=== PATIENT | female | born 1980 | race Hispanic/Latino ===

== ENCOUNTER 2018-05-17 12:03 | Emergency (ER) | payer SELFPAY ==
--- NOTE | 2018-05-17 13:37 | RAD REPORT ---
EXAM DESCRIPTION: RAD - Chest Single View - 05/17/2018 1:22 pm CLINICAL HISTORY: PAIN Chest pain. COMPARISON: No comparisons FINDINGS: Portable technique limits examination quality. The lungs are grossly clear. The heart is normal in size. No displaced fractures. IMPRESSION: No acute intrathoracic process suspected.
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
[2018-05-17 14:03] LABS: Urine Blood NEGATIVE (NEG); Urine Glucose NEGATIVE (NEG); Urine Protein 1+ (NEG)
[2018-05-17 14:14] VITALS: BP 124/80; TEMP 98.9; O2SAT 100
== END 2018-05-17 14:10 | disposition home or self-care (01) ==
LOC: ER 12:03
DX: S00.90XA Unspecified superficial injury of unspecified part of head, initial encounter (principal); S20.222A Contusion of left back wall of thorax, initial encounter; Y00.XXXA Assault by blunt object, initial encounter; Y93.9 Activity, unspecified; Y92.009 Unspecified place in unspecified non-institutional (private) residence as the place of occurrence of the external cause; Z98.82 Breast implant status
CPT/HCPCS: 70450; 71045; 81003; 81025; 99283

== ENCOUNTER 2019-03-05 19:48 | Emergency (ER) | payer OTHER, SELFPAY ==
[2019-03-05] MEDS ORDERED: ACETAMINOPHEN 500 MG TAB ONE (20:22)
[2019-03-05 20:44] LABS: Urine Blood NEGATIVE (NEG); Urine Glucose NEGATIVE (NEG); Urine Protein NEGATIVE (NEG); Urine Specific Gravity 1.015 (1.005-1.030)
[2019-03-05 20:56] LABS: Urine Bacteria <20 /HPF (<20); Urine Culture Reflex Order NOT NEEDED; Urine RBC NONE SEEN /HPF (NONE SEEN)
[2019-03-05] MEDS ORDERED: OSELTAMIVIR 75 MG CAP ONE (21:20)
[2019-03-05] MEDS ORDERED: PEN G BENZ LA 1.2MU/2ML SYRINGE IM ONE (21:21)
--- NOTE | 2019-03-05 21:42 | ER ---
Nurse's Notes [facility] Name: Vanesa Santos Age: 38 yrs Sex: Female : 1980 Arrival Date: 03/05/2019 Time: 19:51 Bed 15 Private MD: Hudson Villagomez E Diagnosis: Influenza due to certain identified influenza viruses;Streptococcal pharyngitis Presentation: 03/05 20:00 Presenting complaint: Patient states: C/O body aches, congestion and fever that started wh today, sore throat that started yesterday. Pt states daughter was diagnosed with flu last week. Transition of care: patient was not received from another setting of care. Onset of symptoms was March 05, 2019. Risk Assessment: Do you want to hurt yourself or someone else? Patient reports no desire to harm self or others. Initial Sepsis Screen: Does the patient meet any 2 criteria? HR > 90 bpm. Does the patient have a suspected source of infection? Yes: Other: sore throat. Care prior to arrival: None. 20:00 Method Of Arrival: Ambulatory 20:00 Acuity: RHYS 3 POWDER SHOVELER: 20:14 Verified Historical: - Allergies: 20:14 No Known Allergies; - Home Meds: 20:14 None [Active]; - PMHx: 20:14 None; - Immunization history:: Adult Immunizations not up to date. - Social history:: Smoking status: Patient/guardian denies using tobacco. - Ebola Screening: : Patient negative for fever greater than or equal to 101.5 degrees Fahrenheit, and additional compatible Ebola Virus Disease symptoms Patient denies exposure to infectious person. Screenin:15 Abuse screen: Denies threats or abuse. Denies injuries from another. Nutritional screening: No deficits noted. Tuberculosis screening: No symptoms or risk factors identified. Fall Risk None identified. Assessment: 20:15 General: Appears in no apparent distress. Behavior is calm, cooperative, appropriate wh for age. Pain: Complains of pain in Sore throat. Neuro: Level of Consciousness is awake, alert, obeys commands, Oriented to person, place, time, situation, Appropriate for age. Cardiovascular: Heart tones S1 S2 Capillary refill < 3 seconds. Respiratory: Airway is patent Respiratory effort is even, unlabored, Respiratory pattern is regular, symmetrical, Breath sounds are clear bilaterally. GI: Abdomen is flat, non-distended. : No signs and/or symptoms were reported regarding the genitourinary system. EENT: No signs and/or symptoms were reported regarding the EENT system. Derm: Skin is intact, is healthy with good turgor, Skin is pink, warm \T\ dry. normal. Musculoskeletal: Circulation, motion, and sensation intact. 21:29 Reassessment: Patient appears in no apparent distress at this time. No changes from previously documented assessment. Patient and/or family updated on plan of care and expected duration. Pain level reassessed. Patient is alert, oriented x 3, equal unlabored respirations, skin warm/dry/pink. Patient states symptoms have improved. Vital Signs: 20:10 BP 115 / 62; Pulse 115; Resp 18; Temp 100.4; Pulse Ox 100% ; Weight 75.3 kg; Height 5 wh ft. 2 in. (157.48 cm); 21:29 BP 124 / 66; Pulse 110; Resp 18; Temp 99.4(O); Pulse Ox 100% ; wh 20:10 Body Mass Index 30.36 (75.30 kg, 157.48 cm) ED Course: 19:51 Patient arrived in ED. es 19:51 Hudson Villagomez MD is Private Physician. es 19:55 Robert Hartley FNP-C is [facility]. la1 19:55 Deshawn Garcia MD is Attending Physician. la1 20:01 Davis Beard is Primary Nurse. 20:13 Triage completed. wh 20:16 Arm band placed on right wrist. wh 20:16 Patient has correct armband on for positive identification. Bed in low position. Call light in reach. Side rails up X 1. Pulse ox on. NIBP on. 21:55 No provider procedures requiring assistance completed. Patient did not have IV access during this emergency room visit. Administered Medications: 20:21 Drug: Tylenol 1000 mg Route: PO; 21:29 Follow up: Response: No adverse reaction; Temperature is decreased 21:25 Drug: Bicillin L-A 1.2 million units Route: IM; Site: right gluteus; 21:55 Follow up: Response: No adverse reaction 21:25 Drug: Tamiflu 75 mg Route: PO; 21:47 Follow up: Response: No adverse reaction Outcome: 21:41 Discharge ordered by MD. kline 21:55 Discharged to home ambulatory, with family. 21:55 Condition: stable 21:55 Discharge instructions given to patient, family, Instructed on discharge instructions, follow up and referral plans. medication usage, POC Strep and Flu Demonstrated understanding of instructions, follow-up care, medications, POC Prescriptions given X 1. 21:56 Patient left the ED. Signatures: Shalini Galvan Lee, CLINICAL EDUCATION ASSISTANT-C CLINICAL EDUCATION ASSISTANT-Cla1 Davis Beard
--- NOTE | 2019-03-05 21:42 | EDPHYS ---
Physician Documentation [facility] Name: Vanesa Santos Age: 38 yrs Sex: Female : 1980 Arrival Date: 03/05/2019 Time: 19:51 Bed 15 Private MD: Hudson Villagomez E ED Physician Deshawn Garcia HPI: 03/05 20:16 This 38 yrs old Female presents to ER via Ambulatory with complaints of Fever, la1 Congestion, Sore Throat, Headache, Ear Pain, Runny Nose. 20:16 The patient reports fever, that was measured at 100.4 degrees Fahrenheit. Onset: The la1 symptoms/episode began/occurred yesterday. Modifying factors: The patient has had contact with sick. Associated signs and symptoms: Pertinent positives: chills, myalgias, sore throat, Pertinent negatives: abdominal pain, altered mental status, diarrhea, headache, hemoptysis, skin rash, vomiting. Severity of symptoms: At their worst the symptoms were mild. The patient has not recently seen a physician. MANAGER LOCAL: 20:14 Verified Historical: - Allergies: 20:14 No Known Allergies; - Home Meds: 20:14 None [Active]; - PMHx: 20:14 None; - Immunization history:: Adult Immunizations not up to date. - Social history:: Smoking status: Patient/guardian denies using tobacco. - Ebola Screening: : Patient negative for fever greater than or equal to 101.5 degrees Fahrenheit, and additional compatible Ebola Virus Disease symptoms Patient denies exposure to infectious person. ROS: 20:17 Eyes: Negative for injury, pain, redness, and discharge, ENT: Negative for injury, la1 pain, and discharge, Neck: Negative for injury, pain, and swelling, Cardiovascular: Negative for chest pain, palpitations, and edema, Respiratory: Negative for shortness of breath, cough, wheezing, and pleuritic chest pain. 20:17 Back: Negative for injury and pain, : Negative for injury, bleeding, discharge, and swelling, MS/Extremity: Negative for injury and deformity, Neuro: Negative for headache, weakness, numbness, tingling, and seizure. 20:17 Constitutional: Positive for body aches, chills, fever. 20:17 Abdomen/GI: Negative for abdominal pain, nausea, vomiting, and diarrhea, black/tarry stool, rectal pain, rectal bleeding, acute changes. Exam: 20:18 Constitutional: This is a well developed, well nourished patient who is awake, alert, la1 and in no acute distress. Head/Face: Normocephalic, atraumatic. Eyes: Pupils equal round and reactive to light, extra-ocular motions intact. Periorbital areas with no swelling, redness, or edema. ENT: Mucous membranes moist. Neck: Trachea midline, no thyromegaly or masses palpated, and no cervical lymphadenopathy. Supple, full range of motion without nuchal rigidity, or vertebral point tenderness. No Meningismus. Chest/axilla: Normal chest wall appearance and motion. Nontender with no deformity. No lesions are appreciated. Cardiovascular: Regular rate and rhythm with a normal S1 and S2. No gallops, murmurs, or rubs. Normal PMI, no JVD. No pulse deficits. Respiratory: Lungs have equal breath sounds bilaterally, clear to auscultation. No rales, rhonchi or wheezes noted. No increased work of breathing, no retractions or nasal flaring. 20:18 Back: No spinal tenderness. No costovertebral tenderness. Full range of motion. 20:18 Abdomen/GI: Inspection: gravid appearance, is noted. Vital Signs: 20:10 BP 115 / 62; Pulse 115; Resp 18; Temp 100.4; Pulse Ox 100% ; Weight 75.3 kg; Height 5 wh ft. 2 in. (157.48 cm); 21:29 BP 124 / 66; Pulse 110; Resp 18; Temp 99.4(O); Pulse Ox 100% ; wh 20:10 Body Mass Index 30.36 (75.30 kg, 157.48 cm) wh MDM: 19:55 Patient medically screened. la1 21:22 Data reviewed: vital signs, nurses notes, lab test result(s), and as a result, I will la1 discharge patient. Data interpreted: Pulse oximetry: on room air is 100 %. Counseling: I had a detailed discussion with the patient and/or guardian regarding: the historical points, exam findings, and any diagnostic results supporting the discharge/admit diagnosis, lab results, the need for outpatient follow up, a family practitioner, an OB/Gyne specialist, to return to the emergency department if symptoms worsen or persist or if there are any questions or concerns that arise at home. Response to treatment: the patient's symptoms have mildly improved after treatment, patient is well hydrated. and as a result, I will discharge patient. Special discussion: Based on the patient's history, exam, and Dx evaluation, there is no indication for emergent intervention or inpatient Tx. It is understood by the patient/guardian that if the Sx's persist or worsen they need to return immediately for re-evaluation. 03/05 20:01 Order name: Flu; Complete Time: 21:13 03/05 20:01 Order name: Strep; Complete Time: 20:59 03/05 20:14 Order name: Urine Microscopic Only; Complete Time: 20:59 la1 03/05 20:39 Order name: Urine Dipstick--Ancillary (enter results); Complete Time: 20:59 ar5 03/05 20:39 Order name: Urine --Ancillary (enter results); Complete Time: 20:59 ar 03/05 20:14 Order name: Urine Dipstick-Ancillary (obtain specimen); Complete Time: 20:20 la1 03/05 21:13 Order name: PO challenge; Complete Time: 21:26 la1 Administered Medications: 20:21 Drug: Tylenol 1000 mg Route: PO; 21:29 Follow up: Response: No adverse reaction; Temperature is decreased 21:25 Drug: Bicillin L-A 1.2 million units Route: IM; Site: right gluteus; 21:55 Follow up: Response: No adverse reaction 21:25 Drug: Tamiflu 75 mg Route: PO; 21:47 Follow up: Response: No adverse reaction Disposition: 03/06 06:00 Co-signature as Attending Physician, Deshawn Garcia MD I agree with the assessment and [facility] plan of care. Disposition: 03/05/19 21:41 Discharged to Home. Impression: Influenza due to certain identified influenza viruses, Streptococcal pharyngitis. - Condition is Stable. - Discharge Instructions: Fever, Adult, Strep Throat, Strep Throat, [id number], Influenza, Adult, [id number], Rehydration, Adult. - Prescriptions for Tamiflu 75 mg Oral Capsule - take 1 tablet by ORAL route every 12 hours for 5 days; 9 tablet. - Medication Reconciliation Form, Thank You Letter, Antibiotic Education, Prescription Opioid Use form. - Follow up: Private Physician; When: 2 - 3 days; Reason: Recheck today's complaints, Re-evaluation by your physician. Follow up: Emergency Department; When: As needed; Reason: Worsening of condition. - Problem is new. - Symptoms have improved. Signatures: Dispatcher [employer] EDMS Robert Hartley, CONSTRUCTION PROJECT MANAGER-C CONSTRUCTION PROJECT MANAGER-Cla1 Davis Beard Terrence, MD MD tw4 Corrections: (The following items were deleted from the chart) 03/05 21:56 21:41 03/05/2019 21:41 Discharged to Home. Impression: Influenza due to certain identified influenza viruses; Streptococcal pharyngitis. Condition is Stable. Discharge Instructions: Fever, Adult, Strep Throat, Strep Throat, Dorr-vm-Ovdu, Influenza, Adult, Vktn-qc-[id number], Rehydration, Adult. Prescriptions for Tamiflu 75 mg Oral Capsule - take 1 tablet by ORAL route every 12 hours for 5 days; 9 tablet. and Forms are Medication Reconciliation Form, Thank You Letter, Antibiotic Education, Prescription Opioid Use. Follow up: Private Physician; When: 2 - 3 days; Reason: Recheck today's complaints, Re-evaluation by your physician. Follow up: Emergency Department; When: As needed; Reason: Worsening of condition. Problem is new. Symptoms have improved. la1
[2019-03-05 22:00] VITALS: O2SAT 100
[2019-03-05 22:03] VITALS: BP 124/66; TEMP 99.4
== END 2019-03-05 21:56 | disposition home or self-care (01) ==
LOC: ER 19:48
DX: O26.891 Other specified pregnancy related conditions, first trimester (principal); Z3A.00 Weeks of gestation of pregnancy not specified
CPT/HCPCS: 81025; 87081; 87804 ×2; 96372; 99283; J0561; 81003; 81015

== ENCOUNTER 2020-07-02 22:54 | Emergency (ER) | payer OTHER ==
--- NOTE | 2020-07-03 02:30 | ER ---
Nurse's Notes [facility] Name: Vanesa Santos Age: 40 yrs Sex: Female : 1980 Arrival Date: 07/02/2020 Time: 22:57 Bed 28 Private MD: Diagnosis: Phalanx fracture, Right Foot, 5 th Toe Presentation: 07/02 23:30 Chief complaint: Patient states: she fell last night injuring right foot and pinky toe. bb Coronavirus screen: pt currently positive for Covid. Ebola Screen: No symptoms or risks identified at this time. Initial Sepsis Screen: Does the patient meet any 2 criteria? No. Patient's initial sepsis screen is negative. Does the patient have a suspected source of infection? No. Patient's initial sepsis screen is negative. Risk Assessment: Do you want to hurt yourself or someone else? Patient reports no desire to harm self or others. Onset of symptoms was July 01, 2020. 23:30 Method Of Arrival: Ambulatory 23:30 Acuity: RHYS 4 bb Triage Assessment: 23:33 General: Appears in no apparent distress. Behavior is calm, cooperative. Pain: bb Complains of pain in right foot Pain currently is 7 out of 10 on a pain scale. Neuro: Level of Consciousness is awake, alert, obeys commands, Oriented to person, place, time, situation. Cardiovascular: No deficits noted. Respiratory: Respiratory effort is even, unlabored, Respiratory pattern is regular. Derm: Skin is pink, warm \\T\\ dry. Musculoskeletal: Circulation, motion, and sensation intact. Swelling present in right foot Reports pain in right foot. 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 - Social history:: Smoking status: Patient denies any tobacco usage or history of. Screenin/26 00:11 Abuse screen: Denies threats or abuse. Nutritional screening: No deficits noted. bb Tuberculosis screening: No symptoms or risk factors identified. Fall Risk None identified. Assessment: 00:11 Reassessment: No changes from previously documented assessment. see triage assessment. bb 01:59 Reassessment: Patient is alert, oriented x 3, equal unlabored respirations, skin bb warm/dry/pink. pt awaiting dispo by Dr Garibay. 02:40 Reassessment: Patient is alert, oriented x 3, equal unlabored respirations, skin bb warm/dry/pink. Vital Signs: 07/02 23:30 BP 133 / 93; Pulse 85; Resp 16 S; Temp 98.8(O); Pulse Ox 99% on R/A; Weight 70.31 kg bb (R); Height 5 ft. 2 in. (157.48 cm) (R); Pain 7/10; 07/03 02:35 BP 107 / 65; Pulse 63; Resp 16 S; Temp 98.5(O); Pulse Ox 96% on R/A; bb 07/02 23:30 Body Mass Index 28.35 (70.31 kg, 157.48 cm) bb ED Course: 07/02 22:57 Patient arrived in ED. bp1 23:32 Triage completed. bb 23:33 Arm band placed on Patient placed in waiting room, Patient notified of wait time. X-ray bb ordered. 07/03 00:11 Patient has correct armband on for positive identification. Call light in reach. bb 00:32 Zacarias Garibay MD is Attending Physician. mh7 01:08 XRAY Foot RIGHT 3 View In Process Unspecified. EDMS 01:08 XRAY Ankle RIGHT 3 view In Process Unspecified. EDMS 02:07 Kavin tape "Kavin-Taping" done to fourth and fifth toe for protection of fifth toe. ds4 02:12 Ortho shoe applied to right foot. ds4 02:41 No provider procedures requiring assistance completed. Patient did not have IV access bb during this emergency room visit. Administered Medications: No medications were administered Outcome: 02:30 Discharge ordered by . 7 02:41 Discharged to home ambulatory. bb 02:41 Condition: stable 02:41 Discharge instructions given to patient, Instructed on discharge instructions, follow up and referral plans. Demonstrated understanding of instructions, follow-up care. 02:42 Patient left the ED. bb Signatures: Dispatcher [employer] EDMS Coby Au, RN RN bb Dhiraj Castañeda ds4 Meera Queen [facility] Zacarias Garibay MD MD [facility]
--- NOTE | 2020-07-03 02:30 | EDPHYS ---
Physician Documentation [facility] Name: Vanesa Santos Age: 40 yrs Sex: Female : 1980 Arrival Date: 07/02/2020 Time: 22:57 Bed 28 Private MD: ED Physician Zacarias Garibay HPI: 07/03 02:15 This 40 yrs old Female presents to ER via Ambulatory with complaints of Toe mh7 Injury. 02:15 The patient presents with an injury. mh7 02:15 The complaints affect the right foot, 5th toe. Context: The problem was sustained on a [facility] street or driveway, resulted from the patient falling, while walking, Mechanism of Injury: Unknown the patient can fully bear weight, the patient is able to ambulate, without difficulty. Onset: The symptoms/episode began/occurred 2 day(s) ago. Modifying factors: The symptoms are alleviated by nothing, the symptoms are aggravated by weight bearing, wearing shoes. Associated signs and symptoms: Pertinent positives: swelling, Pertinent negatives: calf tenderness, fever, nausea, numbness, rash, tingling, vomiting, warmth, weakness. Severity of symptoms: At their worst the symptoms were moderate, yesterday, in the emergency department the symptoms are unchanged. 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 - Social history:: Smoking status: Patient denies any tobacco usage or history of. ROS: 07/03 02:19 Constitutional: Negative for fever, chills, and weight loss, Eyes: Negative for injury, mh7 pain, redness, and discharge, ENT: Negative for injury, pain, and discharge, Neck: Negative for injury, pain, and swelling, Cardiovascular: Negative for chest pain, palpitations, and edema, Respiratory: Negative for shortness of breath, cough, wheezing, and pleuritic chest pain, Abdomen/GI: Negative for abdominal pain, nausea, vomiting, diarrhea, and constipation, Back: Negative for injury and pain, : Negative for injury, bleeding, discharge, and swelling, Skin: Negative for injury, rash, and discoloration, Neuro: Negative for headache, weakness, numbness, tingling, and seizure, Psych: Negative for depression, anxiety, suicide ideation, homicidal ideation, and hallucinations, Allergy/Immunology: Negative for hives, rash, and allergies, Endocrine: Negative for neck swelling, polydipsia, polyuria, polyphagia, and marked weight changes, Hematologic/Lymphatic: Negative for swollen nodes, abnormal bleeding, and unusual bruising. Exam: 02:19 Constitutional: This is a well developed, well nourished patient who is awake, alert, mh7 and in no acute distress. Head/Face: Normocephalic, atraumatic. 02:19 Neuro: Awake and alert, GCS 15, oriented to person, place, time, and situation. Cranial nerves II-XII grossly intact. Motor strength 5/5 in all extremities. Sensory grossly intact. Cerebellar exam normal. Normal gait. Psych: Awake, alert, with orientation to person, place and time. Behavior, mood, and affect are within normal limits. 02:19 Musculoskeletal/extremity: Extremities: noted in the right foot, 5th toe: contusion, ecchymosis, tenderness, ROM: intact in all extremities, Circulation is intact in all extremities. Pulses: are normal with no appreciated deficits, Perfusion: the patient is normally perfused throughout, Perfusion: the extremity is normally perfused throughout, Sensation intact. Compartment Syndrome exam of affected extremity: is normal. no numbness, no tingling, no sensation deficit, no palor, no weak pulses, Joints: All joints appear normal with full range of motion. Weight bearing: able to fully bear weight, Tendon exam: specific tendon testing normal through active and passive range of motion 02:19 Skin: injury, abrasion(s), very small abrasion noted, of the right foot and right ankle, contusion(s), that are superficial, of the right foot, 5th toe. Vital Signs: 07/02 23:30 BP 133 / 93; Pulse 85; Resp 16 S; Temp 98.8(O); Pulse Ox 99% on R/A; Weight 70.31 kg bb (R); Height 5 ft. 2 in. (157.48 cm) (R); Pain 7/10; 07/03 02:35 BP 107 / 65; Pulse 63; Resp 16 S; Temp 98.5(O); Pulse Ox 96% on R/A; bb 07/02 23:30 Body Mass Index 28.35 (70.31 kg, 157.48 cm) Procedures: 02:23 Performed Kavin tape right 4 th, 5 th toes. [facility] MDM: 02:23 Differential diagnosis: fracture, sprain, arthritis, contusion. Data reviewed: vital [facility] signs, nurses notes, radiologic studies, plain films. Data interpreted: Pulse oximetry: on room air is 99 %. Interpretation: normal. Counseling: I had a detailed discussion with the patient and/or guardian regarding: the historical points, exam findings, and any diagnostic results supporting the discharge/admit diagnosis, the presence of at least one elevated blood pressure reading (>120/80) during this emergency department visit, radiology results, the need for outpatient follow up, a administrative services coordinator, to return to the emergency department if symptoms worsen or persist or if there are any questions or concerns that arise at home. Response to treatment: the patient's symptoms have markedly improved after treatment. 02:30 Patient medically screened. [facility] 07/02 23:35 Order name: XRAY Foot RIGHT 3 View 07/02 23:35 Order name: XRAY Ankle RIGHT 3 view 07/03 02:23 Order name: Orthopedic shoe; Complete Time: 02:31 [facility] Administered Medications: No medications were administered Disposition: 07/03/20 02:30 Discharged to Home. Impression: Phalanx fracture, Right Foot, 5 th Toe. - Condition is Stable. - Discharge Instructions: Toe Fracture, Joby-aj-Ruxe. - Prescriptions for Tramadol 50 mg Oral Tablet - take 1 tablet by ORAL route every 8 hours as needed; 12 tablet. - Medication Reconciliation Form, Thank You Letter, Antibiotic Education, Prescription Opioid Use form. - Follow up: Private Physician; When: 1 - 2 days; Reason: Worsening of condition, Recheck today's complaints, Continuance of care, Re-evaluation by your physician. - Problem is new. - Symptoms have improved. Signatures: Dispatcher [employer] EDCoby Santos RN RN Zacarias Newman MD MD [facility] Corrections: (The following items were deleted from the chart) 02:42 02:30 07/03/2020 02:30 Discharged to Home. Impression: Phalanx fracture, Right Foot, 5 bb th Toe. Condition is Stable. Forms are Medication Reconciliation Form, Thank You Letter, Antibiotic Education, Prescription Opioid Use. Follow up: Private Physician; When: 1 - 2 days; Reason: Worsening of condition, Recheck today's complaints, Continuance of care, Re-evaluation by your physician. Problem is new. Symptoms have improved. mh7
[2020-07-03 02:50] VITALS: BP 107/65; TEMP 98.5; O2SAT 96
--- NOTE | 2020-07-03 08:35 | RAD REPORT ---
EXAM DESCRIPTION: RAD - Ankle Right 3 View - 07/03/2020 1:09 am CLINICAL HISTORY: PAIN COMPARISON: No comparisons FINDINGS: No bone or joint abnormality.
--- NOTE | 2020-07-03 08:41 | RAD REPORT ---
EXAM DESCRIPTION: RAD - Foot Right 3 View - 07/03/2020 1:08 am CLINICAL HISTORY: PAIN COMPARISON: No comparisons FINDINGS: No acute fracture or dislocation seen.
== END 2020-07-03 02:42 | disposition home or self-care (01) ==
LOC: ER 22:54
DX: S92.501A Displaced unspecified fracture of right lesser toe(s), initial encounter for closed fracture (principal); W18.30XA Fall on same level, unspecified, initial encounter; Y93.01 Activity, walking, marching and hiking; Y92.89 Other specified places as the place of occurrence of the external cause
CPT/HCPCS: 99283

== ENCOUNTER 2023-02-09 14:23 | Emergency (ER) | payer OTHER, SELFPAY ==
[2023-02-09 15:25] LABS: SARS-CoV-2 Antigen Rapid Res Negative (Negative)
[2023-02-09] MEDS ORDERED: ALBUTEROL 2.5 MG/3 ML NEB SOL ONE (15:54)
[2023-02-09] MEDS ORDERED: IPRATROPIUM BROM 0.5MG/2.5ML ONE (15:54)
--- NOTE | 2023-02-09 16:06 | EDPHYS ---
Physician Documentation [facility] Name: Vanesa Santos Age: 42 yrs Sex: Female : 1980 Arrival Date: 02/09/2023 Time: 14:23 Bed DIS8 Private MD: ED Physician Rick Price HPI: 02/09 14:42 This 42 yrs old Female presents to ER via Ambulatory with complaints of Fever, jh7 Body Aches. 14:42 The patient reports fever, that was measured at 102 degrees Fahrenheit. jh7 14:42 Onset: The symptoms/episode began/occurred 2 day(s) ago. Associated signs and symptoms: jh7 Pertinent positives: chills, cough, myalgias. Both daughters have similar symptoms.. Historical: - Allergies: 14:44 No Known Allergies; hb - Home Meds: 14:44 None [Active]; hb - PMHx: 14:44 None; hb - PSHx: 14:44 Rhinoplasty; Tummy Tuck; Breast Augmentation; Hemorrhoidectomy; hb - Immunization history:: Adult Immunizations up to date. - Social history:: Smoking status: Patient denies any tobacco usage or history of. ROS: 14:42 Eyes: Negative for injury, pain, redness, and discharge, ENT: Negative for injury, jh7 pain, and discharge, Neck: Negative for injury, pain, and swelling, Cardiovascular: Negative for chest pain, palpitations, and edema, Abdomen/GI: Negative for abdominal pain, nausea, vomiting, diarrhea, and constipation, Back: Negative for injury and pain, MS/Extremity: Negative for injury and deformity, Skin: Negative for injury, rash, and discoloration, Neuro: Negative for headache, weakness, numbness, tingling, and seizure, 14:42 Constitutional: Positive for body aches, chills, fever, 14:42 Respiratory: Positive for cough, Negative for shortness of breath, 14:42 All other systems are negative, Exam: 14:42 Constitutional: This is a well developed, well nourished patient who is awake, alert, jh7 and in no acute distress. Head/Face: Normocephalic, atraumatic. ENT: Nares patent. No nasal discharge, no septal abnormalities noted. Tympanic membranes are normal and external auditory canals are clear. Oropharynx with no redness, swelling, or masses, exudates, or evidence of obstruction, uvula midline. Mucous membranes moist. Cardiovascular: Regular rate and rhythm with a normal S1 and S2. No gallops, murmurs, or rubs. Normal PMI, no JVD. No pulse deficits. Respiratory: Lungs have equal breath sounds bilaterally, clear to auscultation and percussion. No rales, rhonchi or wheezes noted. No increased work of breathing, no retractions or nasal flaring. Abdomen/GI: Soft, non-tender, with normal bowel sounds. No distension or tympany. No guarding or rebound. No evidence of tenderness throughout. Skin: Warm, dry with normal turgor. Normal color with no rashes, no lesions, and no evidence of cellulitis. MS/ Extremity: Pulses equal, no cyanosis. Neurovascular intact. Full, normal range of motion. Neuro: Awake and alert, GCS 15, oriented to person, place, time, and situation. Motor strength 5/5 in all extremities. Sensory grossly intact. Normal gait. Vital Signs: 14:42 BP 117 / 80; Pulse 102; Resp 8; Temp 98.3(TE); Pulse Ox 96% on R/A; Weight 77 kg; hb Height 5 ft. 4 in. ; Pain 5/10; 14:42 Body Mass Index 29.14 (77.00 kg, 162.56 cm) hb 14:42 Pain Scale: Adult hb MDM: 14:28 Patient medically screened. [facility] 15:50 Differential diagnosis: viral Infection, URI, bronchitis. Data reviewed: vital signs, [facility] nurses notes. Counseling: I had a detailed discussion with the patient and/or guardian regarding the historical points, exam findings, and any diagnostic results supporting the discharge/admit diagnosis, to return to the emergency department if symptoms worsen or persist or if there are any questions or concerns that arise at home. Special discussion: I discussed with the patient/guardian that the patient's current presentation does not indicate dosing of antibiotics. They should follow-up with their primary care provider and return if the symptoms persist or progress. 02/09 14:39 Order name: SARS RAPID; Complete Time: 15:32 [facility] 02/09 14:39 Order name: Flu; Complete Time: 15:32 [facility] Administered Medications: 15:46 Drug: DuoNeb Nebulize (2.5 mg - 0.5 mg) 3 ml Nebulizer once Route: Nebulizer; iw Disposition Summary: 02/09/23 16:05 Discharge Ordered Notes: Location: Home [facility] Problem: new [facility] Symptoms: are unchanged [facility] Condition: Stable [facility] Diagnosis - Acute upper respiratory infection, unspecified [facility] Followup: [facility] - With: Private Physician - When: 2 - 3 days - Reason: Recheck today's complaints Discharge Instructions: - Discharge Summary Sheet [facility] - Upper Respiratory Infection, Adult [facility] - Viral Respiratory Infection [facility] Forms: - Work release form iw - Medication Reconciliation Form [facility] - Thank You Letter [facility] - Patient Portal Instructions [facility] - Leadership Thank You Letter [facility] Prescriptions: - albuterol sulfate 90 mcg/actuation Inhalation HFA Aerosol Inhaler - inhale 1 inhalation INHALATION route every 4-6 hours As needed; 1 Each; [facility] Refills: 0, Product Selection Permitted - Tessalon Perles 100 mg Oral Capsule - take 1 capsule ORAL route every 8 hours As needed; 15 capsule; Refills: 0, [facility] Product Selection Permitted Signatures: Dispatcher [employer] Deana Steele, VAUGHN MENDES Starr Delaney RN RN Cait Reyes, BATON TWIRLER BATON TWIRLER [facility] Corrections: (The following items were deleted from the chart) 15:13 14:42 The patient reports fever, that was measured at 102 degrees Fahrenheit, [place] [id number]
--- NOTE | 2023-02-09 16:06 | ER ---
Nurse's Notes [facility] Name: Vanesa Santos Age: 42 yrs Sex: Female : 1980 Arrival Date: 02/09/2023 Time: 14:23 Bed DIS8 Private MD: Diagnosis: Acute upper respiratory infection, unspecified Presentation: 02/09 14:42 Chief complaint: Fever, body aches, cough, pain with cough, and nausea x 2 days. hb Coronavirus screen: Client presents with at least one sign or symptom that may indicate coronavirus-19. Provider contacted for isolation considerations. Ebola Screen: No symptoms or risks identified at this time. Initial Sepsis Screen: Does the patient meet any 2 criteria? No. Patient's initial sepsis screen is negative. Does the patient have a suspected source of infection? No. Patient's initial sepsis screen is negative. Risk Assessment: Do you want to hurt yourself or someone else? Patient reports no desire to harm self or others. Onset of symptoms was February 06, 2023. 14:42 Method Of Arrival: Ambulatory hb 14:42 Acuity: RHYS 4 hb Historical: - Allergies: 14:44 No Known Allergies; hb - Home Meds: 14:44 None [Active]; hb - PMHx: 14:44 None; hb - PSHx: 14:44 Rhinoplasty; Tummy Tuck; Breast Augmentation; Hemorrhoidectomy; hb - Immunization history:: Adult Immunizations up to date. - Social history:: Smoking status: Patient denies any tobacco usage or history of. Vital Signs: 14:42 BP 117 / 80; Pulse 102; Resp 8; Temp 98.3(TE); Pulse Ox 96% on R/A; Weight 77 kg; hb Height 5 ft. 4 in. ; Pain 5/10; 14:42 Body Mass Index 29.14 (77.00 kg, 162.56 cm) hb 14:42 Pain Scale: Adult hb ED Course: 14:27 Patient arrived in ED. rg4 14:28 [facility]yes FNP [facility]. jh7 14:28 Rick Price MD is Attending Physician. jh7 14:44 Triage completed. hb 14:44 Arm band placed on. hb 15:03 Flu Sent. hb 15:03 SARS RAPID Sent. hb 15:46 Stan, Deana, RN is Primary Nurse. iw Administered Medications: 15:46 Drug: DuoNeb Nebulize (2.5 mg - 0.5 mg) 3 ml Nebulizer once Route: Nebulizer; iw Outcome: 16:05 Discharge ordered by MD. harris 16:28 Patient left the ED. iw Signatures: Deana Pierce RN RN iw Baxter, Heather, RN RN hb Garcia, Rubi 4 Cait Reyes FNP [employer] [facility]
[2023-02-09 16:38] VITALS: BP 117/80; TEMP 98.3; O2SAT 96
== END 2023-02-09 16:28 | disposition home or self-care (01) ==
LOC: ER 14:23
DX: J06.9 Acute upper respiratory infection, unspecified (principal); Z11.52 Encounter for screening for COVID-19
CPT/HCPCS: 36415; 87804; 87811; 94640; 99284; J7613; J7644